=== PATIENT | female | born 1965 | race African-American/Black ===

== ENCOUNTER 2018-12-05 22:43 | Inpatient (IN) ==
[2018-12-05] MEDS ORDERED: ALBUTEROL/IPRATROPIUM 3 ML NEB RESP TX STA (23:14)
[2018-12-05] MEDS ORDERED: ONDANSETRON 4 MG/2 ML VIAL IV STA (23:14)
[2018-12-05] MEDS ORDERED: FUROSEMIDE 100 MG/10 ML VIAL IV STA (23:14)
[2018-12-05] MEDS ORDERED: MORPHINE 4 MG/1 ML VIAL IV STA (23:14)
[2018-12-05] MEDS ORDERED: ASPIRIN 325 MG TABLET PO STA (23:14)
[2018-12-05] MEDS ORDERED: methylPREDNISolone SOD SUC 125 MG/2 ML VIAL IV STA (23:14)
[2018-12-06 00:50] LABS: Basophils # 0.1 10*3/uL (0.0-0.2); Basophils % 0.9 % (0.0-0.8); Eosinophils % 14.4 % (0.00-10.9); Hematocrit 32.2 VOL% (35.7-47.0); Hemoglobin 8.9 GM/DL (12.0-16.0); Immature Granulocytes % 0.3 %; Immature Granulocytes Absolute 0.02 #; Lymphocytes # 1.7 10*3/uL (1.4-4.0); Lymphocytes % 25.1 % (21.3-54.2); Mean Corpuscular HGB Conc 27.6 GM/DL (32-36); Mean Corpuscular Volume 63.9 FL (87-102); NRBC # 0.07 10*3/uL; Neutrophils % 48.3 % (38.7-73.9); Platelet Count 218 T/CUMM (130-400); Red Blood Count 5.04 MC/CUMM (3.8-5.5); White Blood Count 6.7 T/CUMM (4-12)
[2018-12-06 00:56] LABS: INR 1.4; PT Patient Result 15.1 SECS
[2018-12-06 01:11] LABS: Apearance,Urine CLEAR (Clear); Bacteria,Urine Occasional /HPF (Few); Bilirubin,Urine Negative (Negative); Blood, Urine Negative (Negative); Glucose,Urine (UA) Negative (Negative); Ketones,Urine Negative (Negative); Mucus,Urine Occasional /LPF (Occasional); Nitrite,Urine Negative (Negative); Protein,Urine Negative; Squamous Epithelial Cell,Urine Occasional /HPF (0-10); Urine Color Straw (Yellow); Urine Specific Gravity 1.004 (1.001-1.035); Urine Urobilinogen < 2.0 EU/DL (0.2-1.0); WBC,Urine <1 /HPF (0-6)
[2018-12-06 01:12] LABS: Alanine Aminotransferase 15 U/L (13-56); Albumin 3.2 G/DL (3.4-5.0); Alkaline Phosphatase 140 U/L (45-117); Aspartate Amino Transferase 19 U/L (0-37); Blood Urea Nitrogen 10 MG/DL (7-18); Calcium 8.7 MG/DL (8.5-10.1); Glucose 112 MG/DL (74-106); Osmolality,Calculated 282.1 MOS/KG (273-304); Total Protein 7.1 G/DL (6.4-8.3); Troponin I 0.023 NG/ML (0.00-0.045)
[2018-12-06 01:18] LABS: Eosinophils 16 % (0-10); Lymphocytes 16 % (20-55); Segmented Neutrophils 57 % (50-85); Total Cells Counted 100
[2018-12-06 01:19] LABS: Anisocytosis 1+; Hypochromasia 1+
[2018-12-06 01:21] LABS: Microcytosis 1+; Target Cells Few
[2018-12-06 01:22] LABS: Platelet Estimate Normal
[2018-12-06] MEDS ORDERED: MAGNESIUM SULF RIDER 2 GM in PREMIX 1 EACH IV STA (01:22)
[2018-12-06] MEDS ORDERED: POTASSIUM CHLORIDE 20 MEQ TABLET PO STA (01:22)
[2018-12-06 01:34] LABS: Barbiturates Screen,Urine Negative (Negative); Benzodiazepines Screen,Urine Negative (Negative); Cannabinoid Screen,Urine Positive (Negative); Opiate Screen,Urine Negative (Negative); Phencyclidine Screen,Urine Negative (Negative)
[2018-12-06] MEDS ORDERED: ACETAMINOPHEN 325 MG TABLET PO PRN (02:10)
[2018-12-06] MEDS ORDERED: MAGNESIUM SULF RIDER 2 GM in PREMIX 1 EACH IV PRN (02:10)
[2018-12-06] MEDS ORDERED: MAGNESIUM SULF RIDER 4 GM in PREMIX 1 EACH IV PRN (02:10)
[2018-12-06] MEDS ORDERED: NICOTINE 21 MG/24 HR PATCH TRANSDERM PRN (02:10)
[2018-12-06] MEDS ORDERED: ONDANSETRON 4 MG/2 ML VIAL IV PRN (02:10)
[2018-12-06] MEDS ORDERED: DEXTROSE 50% 25 GM/50 ML VIAL IV PRN (02:10)
[2018-12-06] MEDS ORDERED: GLUCAGON 1 MG VIAL IM PRN (02:10)
[2018-12-06] MEDS ORDERED: BISACODYL 5 MG TABLET PO PRN (02:10)
[2018-12-06] MEDS ORDERED: DEXTROSE 50% 25 GM/50 ML SYRINGE IV PRN (02:25)
[2018-12-06 03:59] LABS: Risk Ratio 2.75; Thyroid Stimulating Hormone 1.23 uIU/ml (0.358-3.74); VLDL CHOLESTEROL 17.8 MG/DL
[2018-12-06] MEDS: ALBUTEROL/IPRATROPIUM 3 ML NEB RESP TX SCH ×3 (07:00→18:54)
[2018-12-06] MEDS: INSULIN REGULAR 100 UNIT/ML SUBCUT SCH ×4 (07:33→21:35)
[2018-12-06] MEDS ORDERED: FUROSEMIDE 40 MG/4 ML VIAL IV SCH (08:00)
[2018-12-06] MEDS ORDERED: PNEUMOCOCCAL VACCINE (23 VALENT) 0.5 ML VIAL IM ONE (09:03)
[2018-12-06] MEDS: PANTOPRAZOLE 40 MG TABLET PO SCH (09:43)
[2018-12-06 10:19] LABS: Basophils % 0.5 % (0.0-0.8); Eosinophils % 0.2 % (0.00-10.9); Hematocrit 30.3 VOL% (35.7-47.0); Immature Granulocytes Absolute 0.04 #; Lymphocytes # 0.6 10*3/uL (1.4-4.0); Mean Corpuscular HGB Conc 28.4 GM/DL (32-36); Mean Corpuscular Volume 63.4 FL (87-102); Monocytes % 1.7 % (1.7-12.7); NRBC # 0.03 10*3/uL; Neutrophils % 81.6 % (38.7-73.9); Platelet Count 215 T/CUMM (130-400); Red Blood Count 4.78 MC/CUMM (3.8-5.5); Red Cell Distribution Width 21.4 % (9.3-17.3); White Blood Count 4.2 T/CUMM (4-12)
[2018-12-06 10:28] LABS: Hemoglobin 8.6 GM/DL (12.0-16.0)
[2018-12-06 10:55] LABS: Giant Platelets Few; Hypochromasia 3+; Microcytosis 3+; Ovalocytes Few; Platelet Estimate Normal; Polychromasia Slight
[2018-12-06] MEDS ORDERED: NITROGLYCERIN SL 0.4 MG TABLET SL PRN (12:20)
[2018-12-06] MEDS ORDERED: FLUTICASONE 50 MCG NASAL SPRAY 16 GM BOTTLE BOTH NARES PRN (12:20)
[2018-12-06] MEDS: PREGABALIN 75 MG CAPSULE PO SCH ×2 (13:13→21:20)
[2018-12-06] MEDS: CLOPIDOGREL 75 MG TABLET PO SCH (13:13)
[2018-12-06] MEDS: INSULIN GLARGINE 100 UNIT/ML SUBCUT SCH (13:13)
[2018-12-06] MEDS: LOSARTAN 25 MG TABLET PO SCH (13:13)
[2018-12-06] MEDS: ESCITALOPRAM 10 MG TABLET PO SCH (13:13)
[2018-12-06] MEDS: diphenhydrAMINE CAP 25 MG CAPSULE PO PRN (13:17)
[2018-12-06] MEDS: FUROSEMIDE 40 MG/4 ML VIAL IV SCH (17:06)
[2018-12-06] MEDS: ATORVASTATIN 80 MG TABLET PO SCH (21:20)
[2018-12-07] MEDS: ALBUTEROL/IPRATROPIUM 3 ML NEB RESP TX SCH ×4 (00:28→19:17)
[2018-12-07] MEDS: diphenhydrAMINE CAP 25 MG CAPSULE PO PRN ×2 (00:46→08:39)
[2018-12-07 06:02] LABS: Basophils % 0.1 % (0.0-0.8); Eosinophils % 0.1 % (0.00-10.9); Hematocrit 31.6 VOL% (35.7-47.0); Hemoglobin 8.8 GM/DL (12.0-16.0); Immature Granulocytes % 0.9 %; Immature Granulocytes Absolute 0.07 #; Lymphocytes # 1.2 10*3/uL (1.4-4.0); Lymphocytes % 15.6 % (21.3-54.2); Mean Corpuscular HGB Conc 27.8 GM/DL (32-36); Mean Corpuscular Volume 64.1 FL (87-102); Monocytes % 11.4 % (1.7-12.7); NRBC # 0.09 10*3/uL; Neutrophils % 71.9 % (38.7-73.9); Platelet Count 240 T/CUMM (130-400); Red Blood Count 4.93 MC/CUMM (3.8-5.5); Red Cell Distribution Width 21.7 % (9.3-17.3)
[2018-12-07 06:11] LABS: Albumin 3.1 G/DL (3.4-5.0); Bilirubin,Total 1.3 MG/DL (0.2-1.0); Calcium 8.5 MG/DL (8.5-10.1); Osmolality,Calculated 273.1 MOS/KG (273-304); Total Protein 7.2 G/DL (6.4-8.3)
[2018-12-07 06:31] LABS: Anisocytosis 1+
[2018-12-07 06:32] LABS: Microcytosis 1+; Ovalocytes 1+; Platelet Estimate Adequate; Tear Drop Cells Few
[2018-12-07] MEDS ORDERED: MAGNESIUM SULF RIDER 2 GM in PREMIX 1 EACH IV ONE (07:13)
[2018-12-07] MEDS: INSULIN REGULAR 100 UNIT/ML SUBCUT SCH ×4 (08:25→20:55)
[2018-12-07] MEDS: FUROSEMIDE 40 MG/4 ML VIAL IV SCH ×2 (08:26→15:51)
[2018-12-07] MEDS: CLOPIDOGREL 75 MG TABLET PO SCH (08:27)
[2018-12-07] MEDS: POTASSIUM CHLORIDE 20 MEQ TABLET PO PRN ×4 (08:28→20:13)
[2018-12-07] MEDS: ESCITALOPRAM 10 MG TABLET PO SCH (08:28)
[2018-12-07] MEDS: LOSARTAN 25 MG TABLET PO SCH (08:29)
[2018-12-07] MEDS: PREGABALIN 75 MG CAPSULE PO SCH ×2 (08:29→20:13)
[2018-12-07] MEDS: INSULIN GLARGINE 100 UNIT/ML SUBCUT SCH (08:29)
[2018-12-07] MEDS: CARVEDILOL 12.5 MG TABLET PO SCH ×2 (08:29→20:15)
[2018-12-07] MEDS: PANTOPRAZOLE 40 MG TABLET PO SCH (08:30)
[2018-12-07] MEDS: MORPHINE 4 MG/1 ML VIAL IV PRN ×2 (10:24→18:17)
[2018-12-07] MEDS ORDERED: DOBUTamine 500 MG/250 ML PREMIX IV PRN (19:41)
[2018-12-07] MEDS: ATORVASTATIN 80 MG TABLET PO SCH (20:12)
[2018-12-07] MEDS: SACUBITRIL/VALSARTAN 49-51 MG TABLET PO SCH (20:12)
[2018-12-08] MEDS: ALBUTEROL/IPRATROPIUM 3 ML NEB RESP TX SCH ×4 (00:38→19:25)
[2018-12-08 05:44] LABS: Calcium 8.5 MG/DL (8.5-10.1); Osmolality,Calculated 280.5 MOS/KG (273-304)
[2018-12-08 05:56] LABS: Basophils # 0.1 10*3/uL (0.0-0.2); Basophils % 0.6 % (0.0-0.8); Eosinophils # 0.7 10*3/uL (0.0-0.87); Eosinophils % 7.9 % (0.00-10.9); Hematocrit 31.4 VOL% (35.7-47.0); Immature Granulocytes % 0.7 %; Immature Granulocytes Absolute 0.06 #; Lymphocytes # 2.5 10*3/uL (1.4-4.0); Lymphocytes % 29.4 % (21.3-54.2); Mean Corpuscular Volume 64.3 FL (87-102); Monocytes % 10.4 % (1.7-12.7); NRBC # 0.08 10*3/uL; Platelet Count 244 T/CUMM (130-400); Red Blood Count 4.88 MC/CUMM (3.8-5.5); Red Cell Distribution Width 21.6 % (9.3-17.3); White Blood Count 8.4 T/CUMM (4-12)
[2018-12-08 05:58] LABS: Hemoglobin 8.8 GM/DL (12.0-16.0)
[2018-12-08 06:03] LABS: Hypochromasia 1+
[2018-12-08 06:04] LABS: Platelet Estimate Adequate; Polychromasia Slight
[2018-12-08] MEDS ORDERED: SODIUM CHLORIDE 0.9% 250 ML IV ONE (06:49)
[2018-12-08] MEDS ORDERED: DOPamine 800 MG/250 ML PREMIX IV PRN (07:07)
[2018-12-08] MEDS: FUROSEMIDE 40 MG/4 ML VIAL IV SCH ×2 (07:08→15:04)
[2018-12-08] MEDS: INSULIN REGULAR 100 UNIT/ML SUBCUT SCH ×4 (07:58→20:34)
[2018-12-08] MEDS: CARVEDILOL 12.5 MG TABLET PO SCH ×2 (08:00→20:09)
[2018-12-08] MEDS: SACUBITRIL/VALSARTAN 49-51 MG TABLET PO SCH ×2 (08:00→20:11)
[2018-12-08] MEDS: INSULIN GLARGINE 100 UNIT/ML SUBCUT SCH ×2 (08:08→11:17)
[2018-12-08] MEDS: CLOPIDOGREL 75 MG TABLET PO SCH (08:25)
[2018-12-08] MEDS: ESCITALOPRAM 10 MG TABLET PO SCH (08:25)
[2018-12-08] MEDS: PREGABALIN 75 MG CAPSULE PO SCH ×2 (08:25→20:33)
[2018-12-08] MEDS: PANTOPRAZOLE 40 MG TABLET PO SCH (08:25)
[2018-12-08] MEDS: MORPHINE 4 MG/1 ML VIAL IV PRN (08:26)
[2018-12-08 18:30] LABS: Troponin I 0.019 NG/ML (0.00-0.045)
[2018-12-08] MEDS: ATORVASTATIN 80 MG TABLET PO SCH (20:33)
[2018-12-09 00:27] LABS: Basophils # 0.1 10*3/uL (0.0-0.2); Basophils % 1.1 % (0.0-0.8); Eosinophils # 0.8 10*3/uL (0.0-0.87); Eosinophils % 10.7 % (0.00-10.9); Hematocrit 36.5 VOL% (35.7-47.0); Hemoglobin 9.8 GM/DL (12.0-16.0); Immature Granulocytes % 0.5 %; Immature Granulocytes Absolute 0.04 #; Lymphocytes # 1.6 10*3/uL (1.4-4.0); Lymphocytes % 21.7 % (21.3-54.2); Mean Corpuscular HGB Conc 26.8 GM/DL (32-36); Mean Corpuscular Volume 67.3 FL (87-102); Monocytes % 11.1 % (1.7-12.7); NRBC # 0.06 10*3/uL; Neutrophils % 54.9 % (38.7-73.9); Platelet Count 313 T/CUMM (130-400); Red Blood Count 5.42 MC/CUMM (3.8-5.5); Red Cell Distribution Width 21.5 % (9.3-17.3); White Blood Count 7.4 T/CUMM (4-12)
[2018-12-09] MEDS: ALBUTEROL/IPRATROPIUM 3 ML NEB RESP TX SCH ×4 (00:48→19:14)
[2018-12-09 00:50] LABS: Troponin I 0.025 NG/ML (0.00-0.045)
[2018-12-09 00:53] LABS: Calcium 8.6 MG/DL (8.5-10.1); Osmolality,Calculated 276.8 MOS/KG (273-304)
[2018-12-09] MEDS: INSULIN REGULAR 100 UNIT/ML SUBCUT SCH ×4 (07:56→20:10)
[2018-12-09] MEDS: PANTOPRAZOLE 40 MG TABLET PO SCH (08:49)
[2018-12-09] MEDS: PREGABALIN 75 MG CAPSULE PO SCH ×2 (08:50→20:17)
[2018-12-09] MEDS: CLOPIDOGREL 75 MG TABLET PO SCH (08:50)
[2018-12-09] MEDS: ESCITALOPRAM 10 MG TABLET PO SCH (08:50)
[2018-12-09] MEDS: INSULIN GLARGINE 100 UNIT/ML SUBCUT SCH (08:54)
[2018-12-09] MEDS ORDERED: PNEUMOCOCCAL VACCINE (23 VALENT) 0.5 ML VIAL IM ONE (09:00)
[2018-12-09] MEDS: MORPHINE 4 MG/1 ML VIAL IV PRN ×2 (09:03→16:54)
[2018-12-09] MEDS: FUROSEMIDE 40 MG/4 ML VIAL IV SCH (09:06)
[2018-12-09] MEDS: CARVEDILOL 12.5 MG TABLET PO SCH (09:06)
[2018-12-09] MEDS: SACUBITRIL/VALSARTAN 49-51 MG TABLET PO SCH (09:06)
[2018-12-09] MEDS: diphenhydrAMINE CAP 25 MG CAPSULE PO PRN (20:17)
[2018-12-09] MEDS: ATORVASTATIN 80 MG TABLET PO SCH (20:17)
[2018-12-10] MEDS: ALBUTEROL/IPRATROPIUM 3 ML NEB RESP TX SCH ×4 (01:17→20:16)
[2018-12-10] MEDS: diphenhydrAMINE CAP 25 MG CAPSULE PO PRN (03:22)
[2018-12-10 04:11] LABS: Basophils # 0.1 10*3/uL (0.0-0.2); Basophils % 0.8 % (0.0-0.8); Eosinophils % 12.7 % (0.00-10.9); Hematocrit 31.4 VOL% (35.7-47.0); Hemoglobin 8.8 GM/DL (12.0-16.0); Immature Granulocytes % 0.5 %; Immature Granulocytes Absolute 0.04 #; Lymphocytes # 2.3 10*3/uL (1.4-4.0); Lymphocytes % 29.5 % (21.3-54.2); Mean Corpuscular Volume 64.7 FL (87-102); Monocytes % 10.6 % (1.7-12.7); NRBC # 0.05 10*3/uL; Neutrophils % 45.9 % (38.7-73.9); Platelet Count 303 T/CUMM (130-400); Red Blood Count 4.85 MC/CUMM (3.8-5.5); Red Cell Distribution Width 21.1 % (9.3-17.3); White Blood Count 7.9 T/CUMM (4-12)
[2018-12-10 04:22] LABS: % Iron Saturation 3.8 % (18-50); Calcium 8.3 MG/DL (8.5-10.1); Ferritin 19.6 ng/ml (8-252); Osmolality,Calculated 275.7 MOS/KG (273-304)
[2018-12-10 05:18] LABS: Eosinophils 13 % (0-10); Lymphocytes 28 % (20-55); Segmented Neutrophils 48 % (50-85); Total Cells Counted 100
[2018-12-10 05:19] LABS: Anisocytosis 1+; Hypochromasia 1+; Microcytosis 1+; Platelet Estimate Normal
[2018-12-10 05:20] LABS: Atypical Lymphocytes Few; Ovalocytes 2+; Reactive Lymphocytes 2+
[2018-12-10 05:21] LABS: Giant Platelets Few
[2018-12-10] MEDS: INSULIN REGULAR 100 UNIT/ML SUBCUT SCH ×4 (07:35→21:19)
[2018-12-10] MEDS: PANTOPRAZOLE 40 MG TABLET PO SCH (09:23)
[2018-12-10] MEDS: ESCITALOPRAM 10 MG TABLET PO SCH (09:23)
[2018-12-10] MEDS: PREGABALIN 75 MG CAPSULE PO SCH ×2 (09:23→21:18)
[2018-12-10] MEDS: CLOPIDOGREL 75 MG TABLET PO SCH (09:23)
[2018-12-10] MEDS: MORPHINE 4 MG/1 ML VIAL IV PRN ×2 (09:32→22:57)
[2018-12-10] MEDS ORDERED: INSULIN GLARGINE 100 UNIT/ML SUBCUT SCH (11:16)
[2018-12-10] MEDS ORDERED: ERGOCALCIFEROL 50,000 UNIT CAPSULE PO SCH (11:30)
[2018-12-10] MEDS: INSULIN GLARGINE 100 UNIT/ML SUBCUT SCH (13:26)
[2018-12-10] MEDS: ASCORBIC ACID 500 MG TABLET PO SCH ×2 (13:32→21:18)
[2018-12-10] MEDS: FUROSEMIDE 80 MG TABLET PO SCH (13:32)
[2018-12-10] MEDS: CARVEDILOL 3.125 MG TABLET PO SCH (21:19)
[2018-12-10] MEDS: SACUBITRIL/VALSARTAN 49-51 MG TABLET PO SCH (21:19)
[2018-12-11] MEDS: ALBUTEROL/IPRATROPIUM 3 ML NEB RESP TX SCH ×3 (00:41→12:15)
[2018-12-11 05:57] LABS: Calcium 8.6 MG/DL (8.5-10.1); Osmolality,Calculated 279.5 MOS/KG (273-304)
[2018-12-11 06:19] LABS: Basophils # 0.1 10*3/uL (0.0-0.2); Basophils % 0.7 % (0.0-0.8); Eosinophils # 0.9 10*3/uL (0.0-0.87); Hematocrit 33.4 VOL% (35.7-47.0); Immature Granulocytes % 0.4 %; Immature Granulocytes Absolute 0.03 #; Lymphocytes # 2.4 10*3/uL (1.4-4.0); Lymphocytes % 34.6 % (21.3-54.2); Mean Corpuscular HGB Conc 26.9 GM/DL (32-36); Mean Corpuscular Volume 66.1 FL (87-102); Monocytes % 12.8 % (1.7-12.7); NRBC # 0.04 10*3/uL; Neutrophils % 38.5 % (38.7-73.9); Platelet Count 326 T/CUMM (130-400); Red Blood Count 5.05 MC/CUMM (3.8-5.5); Red Cell Distribution Width 21.3 % (9.3-17.3); White Blood Count 6.9 T/CUMM (4-12)
[2018-12-11 06:53] LABS: Band Neutrophils 2 % (0-10)
[2018-12-11 06:54] LABS: Eosinophils 15 % (0-10); Hypochromasia 2+; Lymphocytes 32 % (20-55); Platelet Estimate Normal; Segmented Neutrophils 40 % (50-85); Total Cells Counted 100
[2018-12-11] MEDS: INSULIN REGULAR 100 UNIT/ML SUBCUT SCH ×2 (08:41→12:37)
[2018-12-11] MEDS ORDERED: CHOLECALCIFEROL 5,000 UNIT TABLET PO SCH (09:00)
[2018-12-11] MEDS: ESCITALOPRAM 10 MG TABLET PO SCH (09:09)
[2018-12-11] MEDS: SACUBITRIL/VALSARTAN 49-51 MG TABLET PO SCH (09:09)
[2018-12-11] MEDS: ASCORBIC ACID 500 MG TABLET PO SCH (09:09)
[2018-12-11] MEDS: FUROSEMIDE 80 MG TABLET PO SCH (09:10)
[2018-12-11] MEDS: PREGABALIN 75 MG CAPSULE PO SCH (09:10)
[2018-12-11] MEDS: CARVEDILOL 3.125 MG TABLET PO SCH (09:10)
[2018-12-11] MEDS: PANTOPRAZOLE 40 MG TABLET PO SCH (09:10)
[2018-12-11] MEDS: CLOPIDOGREL 75 MG TABLET PO SCH (09:10)
[2018-12-11] MEDS ORDERED: KETOROLAC 30 MG/1 ML VIAL IV ONE (10:48)
[2018-12-11 11:57] VITALS: BP 81/53
== END 2018-12-11 13:15 | disposition home health service (06) | DRG 291 ==
LOC: EDBD → EDUNIT# → N.EDINP 22:43 → N.ED 22:43 → SUATTDRO 12-06 02:10 → N.TELEN 12-06 07:20 → N.CC 12-07 19:36 → N.TELEN 12-10 14:16
PROVIDERS: ADMIT Emergency Medicine; ATTEND Internal Medicine Cardiovascular Disease

== ENCOUNTER 2020-06-25 06:05 | Observation (INO) ==
[~2020-06-25 06:05] MED LIST: ASPIRIN 325 MG TABLET PO ONE; MAGNESIUM SULF RIDER 2 GM in PREMIX 1 EACH IV PRN; POTASSIUM CHLORIDE RIDER 10 MEQ in PREMIX 1 EACH IV PRN
[2020-06-25] MEDS: SODIUM CHLORIDE 0.9% 1,000 ML IV SCH ×2 (07:32→18:24)
[2020-06-25 07:51] LABS: Basophils # 0.1 10*3/uL (0.0-0.2); Eosinophils # 0.3 10*3/uL (0.0-0.87); Eosinophils % 5.5 % (0.00-10.9); Hematocrit 41.6 VOL% (35.7-47.0); Hemoglobin 13.2 GM/DL (12.0-16.0); Immature Granulocytes % 0.2 %; Immature Granulocytes Absolute 0.01 #; Lymphocytes # 1.7 10*3/uL (1.4-4.0); Lymphocytes % 33.1 % (21.3-54.2); Mean Corpuscular HGB Conc 31.7 GM/DL (32-36); Mean Corpuscular Volume 74.2 FL (87-102); Monocytes % 12.3 % (1.7-12.7); Neutrophils % 46.9 % (38.7-73.9); Platelet Count 168 T/CUMM (130-400); Red Blood Count 5.61 MC/CUMM (3.8-5.5); Red Cell Distribution Width 19.6 % (9.3-17.3); White Blood Count 5.1 T/CUMM (4-12)
[2020-06-25 07:57] LABS: INR 1.2; PT Patient Result 12.9 SECS (9.8-11.9)
[2020-06-25 08:08] LABS: Platelet Estimate Adequate
[2020-06-25 08:10] LABS: Calcium 8.6 MG/DL (8.5-10.1); Osmolality,Calculated 281.5 MOS/KG (273-304)
[2020-06-25] MEDS ORDERED: LIDOCAINE 2% 5 ML VIAL ONE (08:20)
[2020-06-25] MEDS ORDERED: ETOMIDATE 20 MG/10 ML VIAL IV ONE (08:20)
[2020-06-25] MEDS ORDERED: propofoL 200 MG/20 ML VIAL IV ONE (08:20)
[2020-06-25] MEDS ORDERED: GLYCOPYRROLATE 0.4 MG/2 ML VIAL ONE (08:20)
[2020-06-25] MEDS ORDERED: ASPIRIN 325 MG TABLET ONE (08:41)
[2020-06-25] MEDS ORDERED: NITROGLYCERIN SL 0.4 MG TABLET SL PRN (09:55)
[2020-06-25] MEDS ORDERED: HEPARIN/NACL 0.9% 2 UNITS/ML 1,000 ML IV ONE (10:12)
[2020-06-25] MEDS ORDERED: LIDOCAINE 1% 20 ML VIAL ONE ×3 (10:12→11:30)
[2020-06-25] MEDS ORDERED: MIDAZOLAM 2 MG/2 ML VIAL ONE ×2 (10:24→10:36)
[2020-06-25] MEDS ORDERED: fentaNYL 100 MCG/2 ML VIAL ONE (10:24)
[2020-06-25] MEDS ORDERED: ATROPINE 1 MG/10 ML SYRINGE ONE (11:48)
[2020-06-25] MEDS ORDERED: ACETAMINOPHEN 325 MG TABLET PO PRN (11:55)
[2020-06-25] MEDS ORDERED: MORPHINE 4 MG/1 ML VIAL IV PRN (11:55)
[2020-06-25] MEDS ORDERED: diphenhydrAMINE CAP 25 MG CAPSULE PO ONE (11:58)
[2020-06-25] MEDS ORDERED: MAGNESIUM SULF RIDER 2 GM in PREMIX 1 EACH IV PRN (11:58)
[2020-06-25] MEDS ORDERED: DIAZEPAM 5 MG TABLET PO ONE (11:58)
[2020-06-25] MEDS ORDERED: INFLUENZA VIRUS VACCINE 0.5 ML SYRINGE IM ONE (13:34)
[2020-06-25] MEDS ORDERED: INSULIN GLARGINE 100 UNIT/ML SUBCUT SCH (19:00)
[2020-06-25] MEDS: FERROUS SULFATE 325 MG TABLET PO SCH (20:42)
[2020-06-25] MEDS: SACUBITRIL/VALSARTAN 49-51 MG TABLET PO SCH (20:42)
[2020-06-25] MEDS ORDERED: ATORVASTATIN 80 MG TABLET PO SCH (21:00)
[2020-06-25] MEDS ORDERED: carvediloL 6.25 MG TABLET PO SCH (21:00)
[2020-06-26] MEDS: SODIUM CHLORIDE 0.9% 1,000 ML IV SCH ×2 (02:00→04:14)
[2020-06-26 06:43] LABS: Basophils # 0.1 10*3/uL (0.0-0.2); Basophils % 1.7 % (0.0-0.8); Eosinophils # 0.3 10*3/uL (0.0-0.87); Eosinophils % 4.8 % (0.00-10.9); Hematocrit 41.7 VOL% (35.7-47.0); Hemoglobin 13.4 GM/DL (12.0-16.0); Immature Granulocytes % 0.4 %; Immature Granulocytes Absolute 0.02 #; Lymphocytes # 2.2 10*3/uL (1.4-4.0); Lymphocytes % 40.9 % (21.3-54.2); Mean Corpuscular HGB Conc 32.1 GM/DL (32-36); Monocytes % 13.1 % (1.7-12.7); Neutrophils % 39.1 % (38.7-73.9); Platelet Count 179 T/CUMM (130-400); Red Blood Count 5.56 MC/CUMM (3.8-5.5); Red Cell Distribution Width 19.5 % (9.3-17.3); White Blood Count 5.4 T/CUMM (4-12)
[2020-06-26] MEDS ORDERED: ALBUTEROL 2.5 MG/3 ML NEB RESP TX PRN (07:00)
[2020-06-26 07:06] LABS: Calcium 8.1 MG/DL (8.5-10.1); Osmolality,Calculated 282.7 MOS/KG (273-304); Thyroid Stimulating Hormone 1.34 uIU/ml (0.358-3.74)
[2020-06-26 07:58] VITALS: BP 107/66
[2020-06-26] MEDS ORDERED: ISOSORBIDE MONONITRATE 30 MG TABLET PO SCH (09:00)
[2020-06-26] MEDS ORDERED: PANTOPRAZOLE 40 MG TABLET PO SCH (09:00)
[2020-06-26] MEDS ORDERED: ASPIRIN CHEW 81 MG TABLET PO SCH (09:00)
[2020-06-26] MEDS ORDERED: CLOPIDOGREL 75 MG TABLET PO SCH (09:00)
[2020-06-26] MEDS ORDERED: amLODIPine 2.5 MG TABLET PO SCH (09:00)
[2020-06-26] MEDS ORDERED: POTASSIUM CHLORIDE 20 MEQ TABLET PO SCH (09:00)
[2020-06-26] MEDS ORDERED: FUROSEMIDE 80 MG TABLET PO SCH (09:00)
[2020-06-26] MEDS: SACUBITRIL/VALSARTAN 49-51 MG TABLET PO SCH (10:46)
[2020-06-26] MEDS: FERROUS SULFATE 325 MG TABLET PO SCH (10:51)
== END 2020-06-26 14:16 | disposition home or self-care (01) ==
LOC: N.TELEN 06:05 → N.CL 06:05 → N.TELEN 13:37
PROVIDERS: ADMIT Internal Medicine Cardiovascular Disease; ATTEND Internal Medicine Cardiovascular Disease